=== PATIENT | male | born 1945 | race Two or more races ===

== ENCOUNTER → 2023-01-18 | Outpatient (CLI) | payer MEDICARE, BC ==
--- NOTE | 2023-01-19 07:57 | MR ---
EXAMINATION TYPE: MR brain/cspine wo DATE OF EXAM: 01/18/2023 COMPARISON: NONE HISTORY: Neck pain x5 months and Tremors in Arm and Falling. History of prostate cancer. Ataxia and c ervical disc herniation/myelopathy per order. TECHNIQUE: Multiplanar, multisequence imaging of the brain and brainstem and cervical spine are all p erformed without IV contrast. FINDINGS: Brain: Diffusion weighted images demonstrate no evidence of a recent infarct or other diffusion abnormality. Mild ventricular and sulcal prominence. There are scattered small foci of T2 hyperintensity seen thro ughout the white matter bilaterally. Approximately 40-50 tiny scattered lesions are seen. Lesions are nonspecific in appearance and distribution Midline structures demonstrate normal morphology. The craniocervical junction appears within normal limits. Normal vascular flow voids are present. The visualized sinuses are clear and the globes are i ntact. IMPRESSION: There is mild diffuse cerebral atrophy and mild to moderate nonspecific white matter rodriguez ge presumed on the basis of products of chronic small vessel ischemic change in patient of this age. Cervical spine: Slight dextroconvex scoliosis centered in the upper thoracic spine. Sagittal images of the cervical s pine show the craniocervical junction to appear within normal limits. The cervical and upper thoraci c spinal cord is normal in signal. There is grade 1 retrolisthesis of C3 on C4 and C4 on C5. The jacquie tebral body and intravertebral disk heights are normal. The bone marrow signal intensity is within n ormal limits. Axial images and C2-C3 level shows uncovertebral facet degenerative change causing moderate left-side d neural foraminal narrowing. Axial images at C3-C4 level show spondylolisthesis with broad-based right paracentral disc protrusion effacing the anterior thecal sac, there is moderate to advanced right greater than left bilateral ne ural foraminal narrowing. Findings extend to the ventral surface of spinal cord which is slightly fla ttened. Axial images at C4-C5 level show spondylolisthesis with posterior spur disc complex and uncovertebral facet degenerative changes. There is effacement of the anterior thecal sac up to the ventral surface of spinal cord with advanced bilateral neural foraminal narrowing. Axial images at C5-C6 level show uncovertebral facet degenerative changes with focal right paracentra l disc protrusion. There is effacement of the anterior thecal sac and moderate to advanced bilateral neural foraminal narrowing. Axial images at C6-C7 level showed broad based posterior disc protrusion effacing the anterior thecal sac and causing mild to moderate right greater than left bilateral neural foraminal narrowing. Axial images at C7-T1 level appear within normal limits. IMPRESSION: Multilevel spondylolisthesis and degenerative change in the cervical spine as detailed ab ove with findings greatest at C3-C4 through C6-C7 levels.
== END | disposition home or self-care (01) ==
LOC: RADMRIMAIN 13:57
PROVIDERS: ATTEND Psychiatry & Neurology Neurology
DX: M43.12 Spondylolisthesis, cervical region (principal); M50.01 Cervical disc disorder with myelopathy, high cervical region; M47.12 Other spondylosis with myelopathy, cervical region
CPT/HCPCS: 70551; 72141